=== PATIENT | female | born 1975 | race Caucasian/White ===

== ENCOUNTER → 2022-08-22 13:20 | Outpatient (CLI) | payer OTHER, SELFPAY ==
[2022-08-22 14:31] LABS: Influenza A - CEPHEID Flu A POSITIVE (NEGATIVE); Influenza B - CEPHEID Flu B NEGATIVE (NEGATIVE); Respiratory Syncytial Virus Negative (Negative)
[2022-08-22 14:34] LABS: COVID-19 CEPHEID 4-PLEX PCR Negative (Negative)
== END ==
PROVIDERS: Visit Provider Registered Nurse
DX: R05.9 Cough, unspecified (principal)
CPT/HCPCS: 0241U